=== PATIENT | female | born 1980 | race Caucasian/White ===

== ENCOUNTER 2019-06-01 18:53 | Emergency (ER) | payer OTHER ==
--- NOTE | 2019-06-01 19:05 | NUR ---
PATIENT CALLED TO BE TRIAGE NO ANSWER. PATIENT LEFT WITHOUT BEING SEEN BY DR. BAI. NO FURTHER CARE PROVIDED FOR PATIENT.
--- NOTE | 2019-06-01 19:10 | NUR ---
CALLED THE SECOND TIME , NO RESPONSE.
--- NOTE | 2019-06-01 19:15 | NUR ---
CALLED FOR THE THIRD TIME , NO ANSWER
== END 2019-06-01 19:15 | disposition left against medical advice (07) ==
LOC: MED 18:53
DX: R10.13 Epigastric pain (principal); R11.2 Nausea with vomiting, unspecified; F10.239 Alcohol dependence with withdrawal, unspecified; Z87.891 Personal history of nicotine dependence; Z53.21 Procedure and treatment not carried out due to patient leaving prior to being seen by health care provider

== ENCOUNTER 2019-06-01 19:41 | Emergency (ER) | payer OTHER ==
[~2019-06-01] VITALS: Ht 170.2 cm; Wt 82.7 kg
[2019-06-01 19:52] VITALS: BP 162/99
--- NOTE | 2019-06-01 20:15 | NUR ---
PT WAS SEND FROM URGENT CARE FOR EVAL OF NUMBNESS/TINGLING, ABD PAIN, DIZZINESS AND VOMITING X 1 WK. PER PT HAS BEEN DRINKING HARD LIQUOR ALL WEEKEND, ADMITS CHRONIC ALCOHOL USE X 4YRS. PATIENT STATES DIFUSED DULL ABDOMINAL PAIN OF 8/10 AT THIS TIME; VSS; HAND TREMORS AND WEAKNESS NOTICED. PATIENT POSITIONED FOR COMFORT; HOB ELEVATED; BEDRAILS UP X1; BED DOWN. ER MD MADE AWARE OF PT STATUS. PT IS ON THE MONITOR.
--- NOTE | 2019-06-01 20:30 | NUR ---
PT IS UNABLE TO URINATE AT THIS TIME.
--- NOTE | 2019-06-01 21:14 | NUR ---
Pt report given to TIMMY Cha. Transfer of care at this time.
--- NOTE | 2019-06-01 21:16 | NUR ---
RECEIVED REPORT FROM TIMMY PARSONS. PT IN BED RESTING, VSS AT THIS TIME.
[2019-06-01] MEDS ORDERED: ONDANSETRON 4 MG/2 ML VIAL IVP ONE ×2 (22:40→23:50)
[2019-06-01] MEDS ORDERED: NACL 0.9% 1,000 ML IV ONE ×2 (22:40→23:50)
[2019-06-01] MEDS ORDERED: KETOROLAC 30 MG/ML VIAL IVP ONE (22:55)
[2019-06-01] MEDS ORDERED: PANTOPRAZOLE 40 MG INJ VIAL IVP ONE (22:55)
[2019-06-01 23:17] LABS: BASOPHILS # (AUTO) 0.1 K/uL (0.00-0.22); BASOPHILS % (AUTO) 0.5 % (0.0-2.0); EOSINOPHILS # (AUTO) 0.3 K/uL (0-0.4); HEMOGLOBIN 12.8 g/dL (12.0-16.0); MEAN CORPUSCULAR HEMOGLOBIN 35 pg (27-31); MEAN CORPUSCULAR HGB CONC 34 g/dL (33-37); MEAN CORPUSCULAR VOLUME 104.6 fL (80-94); MONOCYTES % (AUTO) 8.7 % (1.7-9.3); NEUTROPHILS # (AUTO) 8.9 K/uL (1.8-7.7); NEUTROPHILS % (AUTO) 78.7 % (42.2-75.2); PLATELET COUNT (AUTO) 147 K/uL (140-450); RED BLOOD CELL COUNT(AUTO) 3.63 MIL/uL (4.20-5.40); RED CELL DISTRIBUTION WIDTH 15.2 % (11.6-13.7); WHITE BLOOD COUNT (AUTO) 11.4 K/uL (4.8-10.8)
[2019-06-01 23:33] LABS: ANION GAP 13.1 (8-16); CREATININE 0.7 mg/dL (0.6-1.3); POTASSIUM 3.1 mmol/L (3.5-5.1)
[2019-06-01 23:38] LABS: ALBUMIN 3.1 g/dL (3.4-5.0)
[2019-06-01 23:42] LABS: LYMPHOCYTES % (AUTO) 9.1 % (20.5-51.1); PROTHROMBIN TIME 13.3 secs (10.8-13.4)
[2019-06-02] MEDS ORDERED: POTASSIUM CHLORIDE 10 MEQ TABER PO ONE (00:05)
[2019-06-02 00:52] VITALS: BP 129/70
--- NOTE | 2019-06-02 00:52 | NUR ---
Patient discharged with v/s stable. Written and verbal after care instructions given and explained. Patient alert, oriented and verbalized understanding of instructions. Ambulatory with steady gait. All questions addressed prior to discharge. ID band removed. Patient advised to follow up with PMD. Rx of Estella Siu given. Patient educated on indication of medication including possible reaction and side effects. Opportunity to ask questions provided and answered.
== END 2019-06-02 00:52 | disposition home or self-care (01) ==
LOC: MED 19:41
DX: R10.13 Epigastric pain (principal); R11.2 Nausea with vomiting, unspecified; F10.239 Alcohol dependence with withdrawal, unspecified; F41.9 Anxiety disorder, unspecified; F17.200 Nicotine dependence, unspecified, uncomplicated
CPT/HCPCS: 36415; 80053; 81002; 81025; 83690; 85025; 85610; 85730; 96361; 96374; 96375; 96376; 99283; C9113; J1885; J2405; J7030

== ENCOUNTER 2019-12-10 10:52 | Emergency (ER) | payer SELFPAY ==
[~2019-12-10] VITALS: Ht 170.2 cm; Wt 88.5 kg
[2019-12-10 10:58] VITALS: BP 158/88
--- NOTE | 2019-12-10 11:10 | NUR ---
AFTER BEING TRIAGED, PT STATES "I JUST WANT TO CHECK MYSELF OUT INSTEAD". PT LWBS
[2019-12-10 11:17] VITALS: BP 158/88
== END 2019-12-10 11:10 | disposition left against medical advice (07) ==
LOC: MED 10:52
DX: R42 Dizziness and giddiness (principal); Z53.21 Procedure and treatment not carried out due to patient leaving prior to being seen by health care provider

== ENCOUNTER 2020-10-13 17:03 | Emergency (ER) | payer SELFPAY ==
[~2020-10-13] VITALS: Ht 170.2 cm; Wt 99.8 kg
[2020-10-13 17:13] VITALS: BP 145/81
--- NOTE | 2020-10-13 17:50 | NUR ---
PT STATES SHE CANNOT PROVIDE URINE AT THIS TIME
[2020-10-13 18:00] LABS: HEMATOCRIT 34.3 % (36-48); HEMOGLOBIN 11.6 g/dL (12.0-16.0); MEAN CORPUSCULAR HEMOGLOBIN 36 pg (27-31); MEAN CORPUSCULAR HGB CONC 34 g/dL (33-37); MEAN CORPUSCULAR VOLUME 105.3 fL (80-94); PLATELET COUNT (AUTO) 125 K/uL (140-450); RED BLOOD CELL COUNT(AUTO) 3.26 MIL/uL (4.20-5.40); RED CELL DISTRIBUTION WIDTH 16.7 % (11.6-13.7); WHITE BLOOD COUNT (AUTO) 19.4 K/uL (4.8-10.8)
[2020-10-13 18:15] LABS: PROTHROMBIN TIME 14.5 secs (10.8-13.4)
[2020-10-13 18:17] LABS: ALBUMIN 2.2 g/dL (3.4-5.0); ANION GAP 15.8 (8-16); CARBON DIOXIDE 25.4 mmol/L (21-32); CREATININE 0.6 mg/dL (0.6-1.3); LIPASE 175 U/L (73-393); POTASSIUM 3.2 mmol/L (3.5-5.1); TOTAL BILIRUBIN 2.7 mg/dL (0.0-1.0)
[2020-10-13 18:18] LABS: ACETAMINOPHEN < 0.5 ug/ml (10-30); SALICYLATE < 2.8 mg/dL (2.8-20.0)
[2020-10-13 18:19] LABS: EOSINOPHILS % (MANUAL) 4 % (0-4); LYMPHOCYTES % (MANUAL) 4 % (20-46); MONOCYTES % (MANUAL) 2 % (5-12)
[2020-10-13] MEDS: POTASSIUM CHLORIDE 10 MEQ TABER PO ONE (19:52)
--- NOTE | 2020-10-13 19:55 | NUR ---
40 y/o female presented to ED c/o abd bloating & pain that has been progressively getting worse for past 2 - 3 months. Pt states Ivan Consuelo was worse pain she had, states the pain feels like she did " thousand situps". Describes pain as pressure/tightness. Pt states drinking alcohol makes the pain better. Pt admits to heavy drinking. Secondary c/o BL leg swellling x 2-3 months. +1 pitting edema noted. Pt abd round and nontender. Active bowel sounds. Pt sitting in lobby, no acute distress noted. VSS. pmh: Anxiety, ETOH, Liposuction NKA
[2020-10-13 19:59] VITALS: BP 121/97
--- NOTE | 2020-10-13 20:30 | NUR ---
Patient discharged with v/s stable. Written and verbal after care instructions given and explained. Patient alert, oriented and verbalized understanding of instructions. Ambulatory with steady gait. All questions addressed prior to discharge. ID band removed. Patient advised to follow up with PMD. Rx of LASIX, ZOFRAN, AND NAPROSYN given. Patient educated on indication of medication including possible reaction and side effects. Opportunity to ask questions provided and answered.
== END 2020-10-13 20:30 | disposition home or self-care (01) ==
LOC: MED 17:03
DX: F10.10 Alcohol abuse, uncomplicated (principal); E80.6 Other disorders of bilirubin metabolism; E87.6 Hypokalemia; R10.9 Unspecified abdominal pain; R60.9 Edema, unspecified; F41.9 Anxiety disorder, unspecified; Y90.7 Blood alcohol level of 200-239 mg/100 ml
CPT/HCPCS: 36415; 71045; 74176; 80053; 81025; 83690; 83880; 85025; 85610; 85730; 93005; 99285; G0480; G0482